=== PATIENT | female | born 1990 | race Caucasian/White ===

== ENCOUNTER 2023-12-29 08:58 | Day surgery (SDC) | payer BC ==
[~2023-12-29] VITALS: Ht 160 cm; Wt 175.2 kg
[~2023-12-29 08:58] MED LIST: LR 1,000 ML IV SCH; Ondansetron 4 MG/2 ML VIAL IV PRN
[2023-12-29 10:00] VITALS: BP 133/90; PULSE 88; TEMP 97.1
[2023-12-29] MEDS ORDERED: WELLBUTRIN XL300 M1 PO (10:05)
[2023-12-29] MEDS ORDERED: SYNTHROID0.112 MG/T PO (10:06)
[2023-12-29] MEDS ORDERED: GLUCOPHAGE1000 MG PO (10:06)
[2023-12-29] MEDS ORDERED: IRON TABLETS325 MG PO (10:07)
[2023-12-29] MEDS ORDERED: VITAMINC250CH PO (10:08)
[2023-12-29] MEDS ORDERED: ZYRTEC 10MG10 MG PO (10:09)
[2023-12-29] MEDS ORDERED: MULTIVITAMIN FO1 CAP PO (10:09)
--- NOTE | 2023-12-29 10:38 | NUR ---
The patient ambulated back to [facility] independently using a steady gait and appeared to tolerate the activity well. Vital signs obtained. Consent signed. 20G IV started in right hand with LR infusing without difficulty. Assessment completed. Home medications reconcilled. Mother, Rochelle, brought back to be at her bedside. Warm blanket provided. Denies any further needs at this time.
[2023-12-29] MEDS ORDERED: Lidocaine PF 2% (20 MG/ML) 5 ML VIAL ONE (10:42)
[2023-12-29 11:25] VITALS: BP 134/73; PULSE 79; TEMP 96.7
[2023-12-29 11:30] VITALS: BP 121/71; PULSE 75
--- NOTE | 2023-12-29 12:29 | NUR ---
1125- PT RETURNS FROM ENDO PROCEDURE VIA CART AND RN ASSIST TO [facility]. PT AMBULATES FROM CART TO RECLINER WITH ASSIST. MONITORS ON AND ALARMS SET. CALL LIGHT WITHIN REACH. REPORT RECEIVED FROM CRISTY HEMPHILL. PT ALERT AND ORIENTED. PT REQUESTS FOOD AND DRINK. PT DENIES ANY PAIN OR NAUSEA. 1130- PT TAKING FOOD AND DRINK WELL. NO COMPLICATIONS NOTED. 1205- DISCHARGE INSTRUCTIONS GIVEN TO PT. ALL QUESTIONS ANSWERED. 1210- PT TRANSFERRED OUT OF THE HOSPITAL VIA WHEELCHAIR TAKEN OUT BY AID.
== END 2023-12-29 12:05 | disposition home or self-care (01) ==
LOC: SDCO 08:58
DX: Z12.11 Encounter for screening for malignant neoplasm of colon (principal); Z83.719 Family history of colon polyps, unspecified
CPT/HCPCS: J2704; J7120